=== PATIENT | male | born 1990 | race Caucasian/White ===

== ENCOUNTER 2017-03-08 20:12 | Emergency (ER) | payer OTHER ==
[2017-03-08 20:22] VITALS: BP 134/77; PULSE 133; RESP 18; TEMP 99.9; O2SAT 95
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
[2017-03-08] MEDS ORDERED: Fluorescein 1 mg Ophthalmic Strip OU ONE (23:20)
== END 2017-03-08 23:41 | disposition home or self-care (01) ==
LOC: ED 20:12
DX: S09.90XA Unspecified injury of head, initial encounter (principal); Y04.0XXA Assault by unarmed brawl or fight, initial encounter; Y92.89 Other specified places as the place of occurrence of the external cause

== ENCOUNTER 2018-07-22 19:10 | Emergency (ER) | payer OTHER ==
[2018-07-22 19:47] VITALS: BMI 36.0
[2018-07-22] MEDS ORDERED: Sodium Chloride 0.9% 1,000 ML IV STA ×2 (20:43→23:12)
[2018-07-22] MEDS ORDERED: Albuterol 0.083% Inhal Sol (2.5 mg/3 mL) UD IH STA ×2 (20:43→22:48)
[2018-07-22 21:24] LABS: BASO # 0.02 K/mm3 (0.0-2.0); BASO % 0.2 % (0.0-3.0); EOS # 0.1 (0.0-0.7); EOS % 1.1 % (1.5-5.0); HEMOGLOBIN 15.8 g/dL (14.0-18.0); LYMPH # 1.2 (1.2-3.4); LYMPH % 11.3 % (22.0-35.0); MEAN CELL VOLUME 86.1 fl (80.0-105.0); MEAN CORPUSCULAR HEMOGLOBIN 30.6 pg (25.0-35.0); MEAN CORPUSCULAR HGB CONC 35.5 g/dl (31.0-37.0); MEAN PLATELET VOLUME 10.2 fl (7.0-11.0); MONO # 1.8 (0.1-0.6); MONO % 16.9 % (1.0-6.0); RBC 5.17 10^6/uL (3.5-6.1); RED CELL DISTRIBUTION WIDTH 13.1 % (11.5-14.5); WHITE BLOOD COUNT 10.5 10^3/uL (4.5-11.0)
--- NOTE | 2018-07-22 21:27 | ED PDOC ---
Arrival/HPI - General Chief Complaint: Shortness Of Breath Time Seen by Provider: 07/22/18 19:30 Historian: Patient - History of Present Illness Narrative History of Present Illness (Text): Jean Ortiz Jr is a 28 year old male, whose past medical history includes asthma, who presents to the Emergency department complaining of cough, nasal congestion, body aches, and nausea, with chest tightness which started yesterday. Patient states he has been having some fever at home. Patient states he did not have a flu vaccine this year and reports positive sick contacts at home. Patient denies any shortness of breath currently. Patient did not take any medications for symptoms at home. Symptom Onset: Gradual Symptom Course: Unchanged Activities at Onset: Light Context: Home Past Medical History - Provider Review Nursing Documentation Reviewed: Yes - Travel History Have you recently traveled outside [place] w/in the past 3 mons?: No - Infectious Disease Hx of Infectious Diseases: None - Cardiac Hx Cardiac Disorders: No - Pulmonary Hx Respiratory Disorders: Yes Hx Asthma: Yes - Neurological Hx Neurological Disorder: No - HEENT Hx HEENT Disorder: No - Renal Hx Renal Disorder: No - Endocrine/Metabolic Hx Endocrine Disorders: No - Hematological/Oncological Hx Blood Disorders: No - Integumentary Hx Dermatological Disorder: No - Musculoskeletal/Rheumatological Hx Musculoskeletal Disorders: No - Gastrointestinal Hx Gastrointestinal Disorders: No - Genitourinary/Gynecological Hx Genitourinary Disorders: No - Psychiatric Hx Psychophysiologic Disorder: No Hx Substance Use: No - Anesthesia Hx Anesthesia: No Hx Anesthesia Reactions: No Hx Malignant Hyperthermia: No Family/Social History - Physician Review Nursing Documentation Reviewed: Yes Family/Social History: Unknown Family HX Smoking Status: Heavy Smoker > 10 Cigarettes Daily Hx Alcohol Use: Yes Hx Substance Use: No Allergies/Home Meds Allergies/Adverse Reactions: Allergies kiwi Adverse Reaction (Verified 03/08/17 20:23) SHORTNESS OF BREATH pollen extracts Adverse Reaction (Verified 03/08/17 20:23) SHORTNESS OF BREATH Review of Systems - Physician Review All systems were reviewed & negative as marked: Yes - Review of Systems Constitutional: Normal. absent: Fevers ENT: Sore Throat, Sinus Congestion, Other Respiratory: Cough. absent: SOB Cardiovascular: Chest Pain (+chest tightness). absent: Palpitations Gastrointestinal: Nausea. absent: Abdominal Pain, Diarrhea, Vomiting Genitourinary Male: Normal. absent: Dysuria, Frequency, Hematuria, Urinary Output Changes Musculoskeletal: Other (+body aches). absent: Back Pain, Neck Pain Skin: Normal. absent: Rash, Pruritis Neurological: Normal. absent: Headache, Dizziness Physical Exam Vital Signs Reviewed: Yes Vital Signs Temp Pulse Resp BP Pulse Ox 07/22/18 19:47 100.3 F H 118 H 18 114/68 95 Temperature: Febrile Blood Pressure: Normal Pulse: Tachycardic Respiratory Rate: Normal Appearance: Positive for: Well-Appearing, Non-Toxic, Comfortable Pain Distress: None Mental Status: Positive for: Alert and Oriented X 3 - Systems Exam Head: Present: Atraumatic, Normocephalic Conjunctiva: Present: Normal Ears: Present: Normal, NORMAL TM, Normal Canal. No: Erythema, TM Bulging, Fluid, TM Perf Mouth: Present: Moist Mucous Membranes Pharnyx: Present: Normal. No: ERYTHEMA, EXUDATE, TONSILS ENLARGED, Peritonsilar Swelling, Uvular Deviation, Muffled/Hoarse Voice, Strider, Soft Palate/Uvular Edema Nose (External): Present: Atraumatic Nose (Internal): Present: Normal Inspection, Clear Mucous Neck: Present: Normal Range of Motion. No: Meningeal Signs, MIDLINE TENDERNESS, Paraspinal Tenderness Respiratory/Chest: Present: Good Air Exchange, Wheezes (Slight wheeze bilaterally). No: Clear to Auscultation, Respiratory Distress, Accessory Muscle Use, Decreased Breath Sounds, Retracting, Rhonchi, Tachypneic Cardiovascular: Present: Regular Rate and Rhythm, Normal S1, S2. No: Murmurs Abdomen: Present: Normal Bowel Sounds. No: Tenderness, Distention, Peritoneal Signs, Rebound, Guarding Back: Present: Normal Inspection Upper Extremity: Present: Normal Inspection. No: Cyanosis, Edema Lower Extremity: Present: Normal Inspection. No: Edema Neurological: Present: GCS=15, Speech Normal Skin: Present: Warm, Dry, Normal Color. No: Rashes Psychiatric: Present: Alert, Oriented x 3 Medical Decision Making ED Course and Treatment: Impression: 28 year old male complaining of cough, nasal congestion, body aches, nausea, and chest tightness since yesterday. Plan: -- CBC, CMP, lipase -- Rapid influenza -- CXR -- Urinalysis -- IV fluids -- Albuterol -- Tylenol -- Toradol -- Reassess and disposition Progress Notes: Patient is nontoxic well-appearing in no distress. fever in er. c/o flu like symptoms. rapid flu; negative cxr; no infiltrate. pt given albuterol, toradol and tylenol and NS iv bolus cbc; wnl cmp; wnl lipase; wnl ekg; sinus tachycardia at 108 bpm normal axis no ST elevations pt reassessment; pt feeling better after medications. vitals stable. tamiflu given Po I advised follow up with primary care physician within the next 2 days. Advised taking Tamiflu as prescribed and taking Motrin every 6 hours as needed for pain/fever reduction. I advised increase fluids and return if symptoms worsen persist or if new symptoms develop. pt requesting referral to housekeeping aid. patient verbalizes understanding of discharge instructions and need for immediate followup. All aspects of this case were discussed the attending of record. IMPRESSION; influenza Motrin every 6 hours as needed for pain/fever reduction Tamiflu twice daily x 5 days Increase fluids Follow-up with primary care physician within the next 2 days Return immediately if symptoms worsen persist or if new concerning symptoms develop - RAD Interpretation Radiology Orders: 07/22/18 20:43 CHEST TWO VIEWS (PA/LAT) [RAD] Stat - Medication Orders Current Medication Orders: Sodium Chloride (Sodium Chloride 0.9%) 1,000 mls @ 999 mls/hr IV .Q1H1M STA Stop: 07/22/18 21:43 Discontinued Medications Acetaminophen (Tylenol 325mg Tab) 975 mg PO STAT STA Stop: 07/22/18 20:44 Albuterol Sulfate (Albuterol 0.083% Inhal Erica (2.5 Mg/3 Ml) Ud) 2.5 mg IH STAT STA Stop: 07/22/18 20:44 Ketorolac Tromethamine (Toradol) 30 mg IVP STAT STA Stop: 07/22/18 20:44 - Scribe Statement The provider has reviewed the documentation as recorded by the Apoorva Marion Provider Scribe Attestation: All medical record entries made by the Scribe were at my direction and personally dictated by me. I have reviewed the chart and agree that the record accurately reflects my personal performance of the history, physical exam, medical decision making, and the department course for this patient. I have also personally directed, reviewed, and agree with the discharge instructions and disposition. Disposition/Present on Arrival - Present on Arrival Any Indicators Present on Arrival: No History of DVT/PE: No History of Uncontrolled Diabetes: No Urinary Catheter: No History of Decub. Ulcer: No History Surgical Site Infection Following: None - Disposition Have Diagnosis and Disposition been Completed?: Yes Diagnosis: Flu-like symptoms Disposition Time: 22:30 Patient Plan: Discharge Patient Problems: Current Active Problems Problem Status Onset Flu-like symptoms Acute Condition: GOOD Discharge Instructions (ExitCare): Flu, Adult (DC) Additional Instructions: Motrin every 6 hours as needed for pain/fever reduction Tamiflu twice daily x 5 days Increase fluids Follow-up with primary care physician within the next 2 days Return immediately if symptoms worsen persist or if new concerning symptoms develop Prescriptions: Albuterol HFA [Ventolin HFA 90 mcg/actuation (8 g)] 2 puff IH [id number] PRN #1 inhaler PRN Reason: Cough Ibuprofen [Motrin] 600 mg PO Q6H PRN #20 tab PRN Reason: pain/fever reduction Oseltamivir Cap [Tamiflu] 75 mg PO BID #10 cap Referrals: [facility] [Outside] - Follow up with primary Marjan Taylor MD [Medical Doctor] - Follow up with primary Jessika Arenas MD [Staff Provider] - Follow up with primary Forms: [employer] ([place]), WORK NOTE
[2018-07-22 21:30] LABS: ALB/GLOB RATIO 1.4 (1.1-1.8); ALBUMIN 4.8 g/dL (3.0-4.8); ALT/SGPT 55 U/L (7-56); AST/SGOT 47 U/L (17-59); BLOOD UREA NITROGEN 16 mg/dL (7-21); CALCIUM 9.9 mg/dL (8.4-10.5); GFR NON-AFRICAN AMERICAN > 60; LIPASE 40 U/L (23-300)
[2018-07-22 23:03] VITALS: BP 109/55
[2018-07-22 23:16] VITALS: PULSE 92; RESP 18; TEMP 98.9; O2SAT 98
[2018-07-22 23:21] LABS: URINE BILIRUBIN NEGATIVE (NEGATIVE); URINE BLOOD NEGATIVE (NEGATIVE); URINE GLUCOSE (UA) NEGATIVE (NEGATIVE); URINE LEUKOCYTE ESTERASE NEGATIVE Leu/uL (NEGATIVE); URINE PROTEIN NEGATIVE mg/dL (<30 mg/dL); URINE UROBILINOGEN 0.2 E.U./dL (<1 E.U./dL)
[2018-07-22 23:30] LABS: URINE APPEARANCE CLEAR (CLEAR); URINE COLOR YELLOW (YELLOW)
--- NOTE | 2018-07-23 08:10 | RAD ---
Date of service: 07/22/2018 HISTORY: cough/fever COMPARISON: No prior. TECHNIQUE: Chest PA and lateral FINDINGS: LUNGS: No active pulmonary disease. PLEURA: No significant pleural effusion identified. No pneumothorax apparent. CARDIOVASCULAR: No aortic atherosclerotic calcification present. Normal cardiac size. No pulmonary vascular congestion. OSSEOUS STRUCTURES: No significant abnormalities. VISUALIZED UPPER ABDOMEN: Normal. OTHER FINDINGS: None. IMPRESSION: No acute cardiopulmonary disease appreciated.
--- NOTE | 2018-07-23 11:20 | CARD ---
APPROVED REPORT Date of service: 07/22/2018 EKG Measurement Heart [id number] <Conclusion> Sinus tachycardia Otherwise normal ECG
== END 2018-07-23 00:16 | disposition home or self-care (01) ==
LOC: ED 19:10
DX: J11.1 Influenza due to unidentified influenza virus with other respiratory manifestations (principal); F17.210 Nicotine dependence, cigarettes, uncomplicated
CPT/HCPCS: 71046; 80053; 81003; 83690; 85025; 87804; 93005; 96361; 96374; 99283; J1885; J7030

== ENCOUNTER 2018-07-23 18:06 | Observation (INO) | payer MEDICAID, OTHER ==
[2018-07-23 18:07] VITALS: BMI 36.0
[2018-07-23] MEDS ORDERED: Albuterol 0.083% Inhal Sol (2.5 mg/3 mL) UD IH STA (18:58)
[2018-07-23] MEDS ORDERED: Sodium Chloride 0.9% 1,000 ML IV STA ×2 (18:58→21:03)
[2018-07-23 19:17] LABS: BASO # 0.01 K/mm3 (0.0-2.0); BASO % 0.1 % (0.0-3.0); EOS # 0.1 (0.0-0.7); EOS % 0.7 % (1.5-5.0); HEMOGLOBIN 15.2 g/dL (14.0-18.0); LYMPH % 9.6 % (22.0-35.0); MEAN CELL VOLUME 86.8 fl (80.0-105.0); MEAN CORPUSCULAR HEMOGLOBIN 30.5 pg (25.0-35.0); MEAN CORPUSCULAR HGB CONC 35.1 g/dl (31.0-37.0); MEAN PLATELET VOLUME 10.1 fl (7.0-11.0); MONO # 1.5 (0.1-0.6); RBC 4.99 10^6/uL (3.5-6.1); RED CELL DISTRIBUTION WIDTH 13.2 % (11.5-14.5); WHITE BLOOD COUNT 10.2 10^3/uL (4.5-11.0)
--- NOTE | 2018-07-23 19:23 | ED PDOC ---
Arrival/HPI <Jonathon Villela - Last Filed: 07/23/18 22:30> - General Historian: Patient - History of Present Illness Narrative History of Present Illness (Text): 07/23/18 19:37 28-year-old male with a history of asthma presents today with cough nasal congestion and body aches. patient states he is feeling chest tightness. Patient states he was seen in the emergency room yesterday and diagnosed with flulike illness. Patient states he did not take his Tamiflu and he has not taken Motrin today for fever. Patient states he went to work and felt worse at work. He denies headache or dizziness. No nausea vomiting diarrhea or constipation. No abdominal pain. Patient states he "feels like he has been hit by a truck". <Vidhya Alba - Last Filed: 07/24/18 00:07> - General Chief Complaint: Chest Pain Time Seen by Provider: 07/23/18 18:09 Past Medical History - Provider Review Nursing Documentation Reviewed: Yes - Travel History Have you recently traveled outside [place] w/in the past 3 mons?: No - Infectious Disease Hx of Infectious Diseases: None - Cardiac Hx Cardiac Disorders: No - Pulmonary Hx Respiratory Disorders: Yes Hx Asthma: Yes - Neurological Hx Neurological Disorder: No - HEENT Hx HEENT Disorder: No - Renal Hx Renal Disorder: No - Endocrine/Metabolic Hx Endocrine Disorders: No - Hematological/Oncological Hx Blood Disorders: No - Integumentary Hx Dermatological Disorder: No - Musculoskeletal/Rheumatological Hx Musculoskeletal Disorders: No - Gastrointestinal Hx Gastrointestinal Disorders: No - Genitourinary/Gynecological Hx Genitourinary Disorders: No - Psychiatric Hx Psychophysiologic Disorder: No Hx Substance Use: No - Anesthesia Hx Anesthesia: No Hx Anesthesia Reactions: No Hx Malignant Hyperthermia: No <Vidhya Alba - Last Filed: 07/24/18 00:07> Family/Social History - Physician Review Nursing Documentation Reviewed: Yes Family/Social History: Unknown Family HX Smoking Status: Heavy Smoker > 10 Cigarettes Daily Hx Alcohol Use: Yes Hx Substance Use: No <Vidhya Alba - Last Filed: 07/24/18 00:07> Allergies/Home Meds <Jonathon Villela - Last Filed: 07/23/18 22:30> <Vidhya Alba - Last Filed: 07/24/18 00:07> Allergies/Adverse Reactions: Allergies kiwi Adverse Reaction (Verified 03/08/17 20:23) SHORTNESS OF BREATH pollen extracts Adverse Reaction (Verified 03/08/17 20:23) SHORTNESS OF BREATH Review of Systems - Review of Systems Constitutional: Fatigue, Fevers, Other (bodyaches) ENT: Sore Throat, Sinus Congestion Respiratory: SOB, Cough Cardiovascular: Chest Pain, Palpitations Gastrointestinal: absent: Abdominal Pain, Nausea, Vomiting Musculoskeletal: absent: Arthralgias Skin: absent: Rash, Pruritis Neurological: absent: Headache, Dizziness Psychiatric: absent: Anxiety <Vidhya Alba - Last Filed: 07/24/18 00:07> Physical Exam Vital Signs Temp Pulse Resp BP Pulse Ox 07/23/18 21:54 98.3 F 98 H 18 124/73 94 L 07/23/18 21:02 98.2 F 95 H 18 116/62 96 07/23/18 18:51 99.3 F 118 H 19 114/65 94 L <Jonathon Villela - Last Filed: 07/23/18 22:30> Vital Signs Reviewed: Yes Vital Signs Temp Pulse Resp BP Pulse Ox 07/23/18 18:51 99.3 F 118 H 19 114/65 94 L Temperature: Afebrile Blood Pressure: Normal Pulse: Tachycardic Respiratory Rate: Normal Appearance: Positive for: Well-Appearing, Non-Toxic, Comfortable Pain Distress: None Mental Status: Positive for: Alert and Oriented X 3 - Systems Exam Head: Present: Atraumatic Mouth: Present: Moist Mucous Membranes Neck: Present: Normal Range of Motion, Trachea Midline Respiratory/Chest: Present: Good Air Exchange, Wheezes. No: Clear to Auscultation, Respiratory Distress, Accessory Muscle Use, Retracting, Rhonchi, Tachypneic Cardiovascular: Present: Regular Rate and Rhythm Abdomen: No: Tenderness, Distention, Rebound, Guarding Back: Present: Normal Inspection Upper Extremity: Present: Normal ROM Lower Extremity: Present: Normal ROM Neurological: Present: GCS=15, Speech Normal Skin: Present: Warm, Dry, Normal Color. No: Rashes Psychiatric: Present: Alert, Oriented x 3 <Vidhya Alba - Last Filed: 07/24/18 00:07> Medical Decision Making - Lab Interpretations Lab Results: D-Dimer, Quantitative < 200 ng/mlDDU (0-243) 07/23/18 19:00 Troponin I < 0.01 ng/mL 07/23/18 19:00 Total Bilirubin 0.4 mg/dL (0.2-1.3) 07/23/18 19:00 AST 40 U/L (17-59) 07/23/18 19:00 ALT 56 U/L (7-56) 07/23/18 19:00 Alkaline Phosphatase 64 U/L (38-126) 07/23/18 19:00 Total Protein 8.2 g/dL (5.8-8.3) 07/23/18 19:00 Albumin 4.8 g/dL (3.0-4.8) 07/23/18 19:00 Globulin 3.4 gm/dL 07/23/18 19:00 Albumin/Globulin Ratio 1.4 (1.1-1.8) 07/23/18 19:00 - Medication Orders Current Medication Orders: Albuterol/Ipratropium (Duoneb 3 Mg/0.5 Mg (3 Ml) Ud) 3 ml IH STAT STA Stop: 07/23/18 22:00 Discontinued Medications Acetaminophen (Tylenol 325mg Tab) 975 mg PO STAT STA Stop: 07/23/18 19:03 Last Admin: 07/23/18 19:37 Dose: 975 mg Albuterol Sulfate (Albuterol 0.083% Inhal Erica (2.5 Mg/3 Ml) Ud) 2.5 mg IH STAT STA Stop: 07/23/18 18:59 Last Admin: 07/23/18 19:37 Dose: 2.5 mg Sodium Chloride (Sodium Chloride 0.9%) 1,000 mls @ 999 mls/hr IV .Q1H1M STA Stop: 07/23/18 19:58 Last Admin: 07/23/18 19:37 Dose: 999 mls/hr eMAR Start Stop Document 07/23/18 19:37 IT (Rec: 07/23/18 19:37 IT [id number]) Intravenous Solution Start Date 07/23/18 Start Time 19:37 Sodium Chloride (Sodium Chloride 0.9%) 1,000 mls @ 999 mls/hr IV .Q1H1M STA Stop: 07/23/18 22:03 Last Admin: 07/23/18 21:14 Dose: 999 mls/hr eMAR Start Stop Document 07/23/18 21:14 IT (Rec: 07/23/18 21:14 IT [id number]) Intravenous Solution Start Date 07/23/18 Start Time 21:14 Ketorolac Tromethamine (Toradol) 30 mg IVP STAT STA Stop: 07/23/18 18:59 Last Admin: 07/23/18 19:37 Dose: 30 mg MAR Pain Assessment Document 07/23/18 19:37 IT (Rec: 07/23/18 19:37 IT [id number]) Pain Reassessment Is this a pain reassessment? No Sleep Is patient sleeping during reassessment? No IVP Administration Document 07/23/18 19:37 IT (Rec: 07/23/18 19:37 IT [id number]) Charges for Administration # of IVP Administrations 1 Oseltamivir Phosphate (Tamiflu Cap) 75 mg PO STAT STA; Protocol Stop: 07/23/18 21:01 Last Admin: 07/23/18 21:14 Dose: 75 mg <Jonathon Villela - Last Filed: 07/23/18 22:30> ED Course and Treatment: 07/23/18 19:49 Patient complaining of chest pain cough and shortness of breath with subjective fevers chills and body aches at home. Seen in the ER yesterday did not take medications at home. Found to be tachycardic at 120, low grade fever. tylenol PO Toradol IV Normal saline IV bolus CBCWBC 10.2 CMP within normal limits Trop; within normal limits D-dimer negative ekg; sinus tachycardia at [address] elevations QTC 423 rapid flu; negative Chest x-ray from yesterday reviewed no acute infiltrate Tamiflu po 2nd Liter NS iv bolus given 2nd albuterol added Patient reassessment: pt is still complaining of chest pain and shortness of breath. cxr ordered. cxr shows no infiltrate or effusion. case discussed with Dr. Duncan Will admit the patient observational status to remote telemetry for chest pain and shortness of breath with tachycardia and slight hypoxia. With history of asthma and smoking. this patients 2nd visit to ER in 2 days with worsening symptoms. IMPRESSION; Influenza like illness, chest pain, shortness of breath admit observational status to remote tele for cp and sob. Reassessment Condition: Re-examined, Unchanged - Medication Orders Current Medication Orders: Sodium Chloride (Sodium Chloride 0.9%) 1,000 mls @ 999 mls/hr IV .Q1H1M STA Stop: 07/23/18 19:58 Discontinued Medications Acetaminophen (Tylenol 325mg Tab) 975 mg PO STAT STA Stop: 07/23/18 19:03 Albuterol Sulfate (Albuterol 0.083% Inhal Erica (2.5 Mg/3 Ml) Ud) 2.5 mg IH STAT STA Stop: 07/23/18 18:59 Ketorolac Tromethamine (Toradol) 30 mg IVP STAT STA Stop: 07/23/18 18:59 <Vidhya Alba - Last Filed: 07/24/18 00:07> - PA / ROLL GRINDER OPERATOR / Resident Statement JESSIKA has reviewed & agrees with the documentation as recorded. JESSIKA has examined the patient and agrees with the treatment plan. <Jonathon Villela - Last Filed: 07/23/18 22:30> Disposition/Present on Arrival <Jonathon Villela - Last Filed: 07/23/18 22:30> - Present on Arrival Any Indicators Present on Arrival: No History of DVT/PE: No History of Uncontrolled Diabetes: No Urinary Catheter: No History of Decub. Ulcer: No History Surgical Site Infection Following: None - Disposition Have Diagnosis and Disposition been Completed?: Yes Disposition Time: 21:00 Patient Plan: Observation <Vidhya Alba - Last Filed: 07/24/18 00:07> - Disposition Diagnosis: Flu-like symptoms, Chest pain, Shortness of breath Disposition: HOSPITALIZED Patient Problems: Current Active Problems Problem Status Onset Chest pain Acute Flu-like symptoms Acute Shortness of breath Acute Condition: GOOD
[2018-07-23 19:25] LABS: ALB/GLOB RATIO 1.4 (1.1-1.8); ALBUMIN 4.8 g/dL (3.0-4.8); ALT/SGPT 56 U/L (7-56); AST/SGOT 40 U/L (17-59); BLOOD UREA NITROGEN 14 mg/dL (7-21); CALCIUM 9.4 mg/dL (8.4-10.5); GFR NON-AFRICAN AMERICAN > 60
[2018-07-23 19:36] LABS: TROPONIN I < 0.01 ng/mL
[2018-07-23 19:44] LABS: CK-MB 3.2 ng/mL (0.0-3.6)
[2018-07-23] MEDS ORDERED: Albuterol-Ipratrop 3 mg / 0.5 (3 ml) UD ONE (21:59)
[2018-07-23] MEDS ORDERED: Albuterol-Ipratrop 3 mg / 0.5 (3 ml) UD IH STA (21:59)
--- NOTE | 2018-07-24 00:02 | CP.PCM.HP ---
History of Present Illness - History of Present Illness History of Present Illness: Medicine History and Physical for Hospitalist Service, Dr. Sharon Arreguin DO PGY-1 This is a 28 y o male with PMhx asthma who presents to the ED c/o non-productive dry cough, nasal congestion, and body aches x 3 days in duration. Denies hx of sick contacts or recent travel. Admits to not getting his flu vaccine this year. States that he went to the ED yesterday c/o the same symptoms, was diagnosed with flu-like illness, and discharged home on scripts for Tamiflu, Albuterol inhaler, and Motrin. Pt states never picked up the scripts from his pharmacy and decided to come to the ED again because his symptoms were not improving. He states he went to work this am and stated he felt like he "was hit by a truck". Also admits to associated chest tightness and pain elicited when taking in deep breaths. States he usually has asthma-like symptoms like this in the spring, and thinks it might be 2/2 to the cold outside. Admits to associated nausea, but states he was able to tolerate eating chicken and broccoli this past afternoon without any concerns. States he is hungry currently. Denies headache, fever, ch ills, abd pain, urinary complaints, leg edema, or other symptoms. 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 absent: Chills, Fever - EENT Nose/Mouth/Throat: Nasal Congestion, Nasal Discharge. absent: Sinus Pain, Sore Throat - Cardiovascular Cardiovascular: Chest Pain, Dyspnea - Respiratory Respiratory: Cough, Dyspnea, Chest Congestion. absent: Wheezing - Gastrointestinal Gastrointestinal: Nausea. absent: Abdominal Pain, Constipation, Diarrhea, Vomiting - Integumentary Integumentary: absent: Rash Past Patient History - Infectious Disease Hx of Infectious Diseases: None - Past Social History Smoking Status: Heavy Smoker > 10 Cigarettes Daily - CARDIAC Hx Cardiac Disorders: No - PULMONARY Hx Respiratory Disorders: Yes Hx Asthma: Yes - NEUROLOGICAL Hx Neurological Disorder: No - HEENT Hx HEENT Problems: No - RENAL Hx Chronic Kidney Disease: No - ENDOCRINE/METABOLIC Hx Endocrine Disorders: No - HEMATOLOGICAL/ONCOLOGICAL Hx Blood Disorders: No - INTEGUMENTARY Hx Dermatological Problems: No - MUSCULOSKELETAL/RHEUMATOLOGICAL Hx Musculoskeletal Disorders: No - GASTROINTESTINAL Hx Gastrointestinal Disorders: No - GENITOURINARY/GYNECOLOGICAL Hx Genitourinary Disorders: No - PSYCHIATRIC Hx Psychophysiologic Disorder: No Hx Substance Use: No - SURGICAL HISTORY Hx Surgeries: No - ANESTHESIA Hx Anesthesia: No Hx Anesthesia Reactions: No Hx Malignant Hyperthermia: No Meds Allergies/Adverse Reactions: Allergies Allergy/AdvReac Type Severity Reaction Status Date / Time kiwi AdvReac SHORTNESS Verified 03/08/17 20:23 OF BREATH pollen extracts AdvReac SHORTNESS Verified 03/08/17 20:23 OF BREATH Physical Exam - Constitutional Appears: Non-toxic, No Acute Distress - Head Exam Head Exam: ATRAUMATIC, NORMOCEPHALIC - Eye Exam Eye Exam: EOMI, Normal appearance, PERRL - ENT Exam ENT Exam: Mucous Membranes Moist, Normal Oropharynx, TM's Normal Bilaterally - Neck Exam Neck exam: Positive for: Full Rom, Normal Inspection. Negative for: Lymphadenopathy, Tenderness - Respiratory Exam Respiratory Exam: Clear to Auscultation Bilateral, NORMAL BREATHING PATTERN. absent: Rales, Rhonchi, Wheezes - Cardiovascular Exam Cardiovascular Exam: REGULAR RHYTHM, +S1, +S2. absent: Gallop, Rubs, Systolic Murmur - GI/Abdominal Exam GI & Abdominal Exam: Normal Bowel Sounds, Soft. absent: Distended, Guarding, Organomegaly, Tenderness - Extremities Exam Extremities exam: Positive for: full ROM, normal capillary refill, normal inspection, pedal pulses present. Negative for: calf tenderness, pedal edema - Neurological Exam Neurological exam: Alert, CN II-XII Intact, Normal Gait, Oriented x3, Reflexes Normal - Skin Skin Exam: Dry, Intact, Normal Color, Warm Results - Vital Signs Recent Vital Signs: Last Vital Signs Temp 98.2 F 07/23/18 23:33 Pulse 96 H 07/23/18 23:33 Resp 18 07/23/18 23:33 BP 120/80 07/23/18 23:33 Pulse Ox 96 07/23/18 23:33 - Labs Result Diagrams: 07/23/18 19:00 07/23/18 19:00 Labs: Laboratory Results - last 24 hr 07/23/18 07/23/18 07/23/18 19:00 19:00 19:00 WBC 10.2 RBC 4.99 Hgb 15.2 Hct 43.3 MCV 86.8 MCH 30.5 MCHC 35.1 RDW 13.2 Plt Count 230 MPV 10.1 Neut % (Auto) 74.6 H Lymph % (Auto) 9.6 L [place] % (Auto) 15.0 H Eos % (Auto) 0.7 L Baso % (Auto) 0.1 Lymph # (Auto) 1.0 L [place] # (Auto) 1.5 H Eos # (Auto) 0.1 Baso # (Auto) 0.01 Absolute Neuts (auto) 7.59 H D-Dimer, Quantitative Sodium 140 Potassium 4.2 Chloride 103 Carbon Dioxide 27 Anion Gap 14 BUN 14 Creatinine 0.9 Est GFR ( Amer) > 60 Est GFR (Non-Af Amer) > 60 Random Glucose 114 H Calcium 9.4 Total Bilirubin 0.4 AST 40 ALT 56 Alkaline Phosphatase 64 Lactate Dehydrogenase 571 Total Creatine Kinase 336 H CK-MB (CK-2) 3.2 CK-MB (CK-2) % Cancelled Troponin I < 0.01 Total Protein 8.2 Albumin 4.8 Globulin 3.4 Albumin/Globulin Ratio 1.4 Influenza Typ A,B (EIA) Negative for flu a/b 07/23/18 19:00 WBC RBC Hgb Hct MCV MCH MCHC RDW Plt Count MPV Neut % (Auto) Lymph % (Auto) [place] % (Auto) Eos % (Auto) Baso % (Auto) Lymph # (Auto) [place] # (Auto) Eos # (Auto) Baso # (Auto) Absolute Neuts (auto) D-Dimer, Quantitative < 200 Sodium Potassium Chloride Carbon Dioxide Anion Gap BUN Creatinine Est GFR ( Amer) Est GFR (Non-Af Amer) Random Glucose Calcium Total Bilirubin AST ALT Alkaline Phosphatase Lactate Dehydrogenase Total Creatine Kinase CK-MB (CK-2) CK-MB (CK-2) % Troponin I Total Protein Albumin Globulin Albumin/Globulin Ratio Influenza Typ A,B (EIA) Assessment & Plan - Assessment and Plan (Free Text) Assessment: This is a 28 y o male with PMhx asthma who presents to the ED c/o non-productive dry cough, nasal congestion, and body aches x 3 days in duration. Denies hx of sick contacts or recent travel. Admitted for management of URI. Plan: URI -Admit to obs -Regular diet -Nasal saline spray prn for nasal congestion -Tylenol prn for fevers -CXR negative for active disease -EKG in ED demonstrates sinus tachycardia at 121 bpm, no St-t wave changes appreciated -No leukocytosis on admission -Rapid flu neg -Neg d-dimer -Cont to monitor sxs Hx asthma -Duonebs q6h oscar -Daily Claritin Hx tobacco abuse -Cessation counseling provided -Nicotine patch DVT ppx: SCDs GI ppx: not indicated at this time Pt seen, examined with, and plan discussed with Dr. Sharon Duncan, attending physician. James Arreguin DO PGY-1, Customer Service Leader Pager #[phone]
[2018-07-24 00:08] VITALS: RESP 20
[2018-07-24 00:51] LABS: BARBITURATES, UR NEGATIVE (NEGATIVE); BENZODIAZEPINES, UR NEGATIVE (NEGATIVE); OPIATES, UR NEGATIVE (NEGATIVE); PHENCYCLIDINE, UR NEGATIVE (NEGATIVE)
[2018-07-24] MEDS: Albuterol-Ipratrop 3 mg / 0.5 (3 ml) UD IH SCH ×2 (01:45→08:20)
[2018-07-24] MEDS ORDERED: Albuterol-Ipratrop 3 mg / 0.5 (3 ml) UD IH PRN ×2 (05:53→06:02)
[2018-07-24] MEDS: guaiFENesin 100 mg/5 ml Syrup UD PO PRN ×3 (06:15→21:42)
--- NOTE | 2018-07-24 07:58 | CARD ---
APPROVED REPORT Date of service: 07/23/2018 EKG Measurement Heart [id number] <Conclusion> Sinus tachycardia with fusion complexes Otherwise normal ECG
--- NOTE | 2018-07-24 08:56 | RAD ---
Date of service: 07/23/2018 HISTORY: Chest pain.. SOB COMPARISON: Poor inspiration with comparison made with prior chest radiograph 07/22/2018 FINDINGS: LUNGS: Poor inspiration, low lung volumes, crowded bronchovascular markings and mild bibasilar atelectasis. PLEURA: No significant pleural effusion identified, no pneumothorax apparent. CARDIOVASCULAR: No aortic atherosclerotic calcification present. Normal cardiac size. No pulmonary vascular congestion. OSSEOUS STRUCTURES: no significant abnormalities. VISUALIZED UPPER ABDOMEN: Normal. OTHER FINDINGS: None. IMPRESSION: Poor inspiration with low lung volumes common crowded bronchovascular markings and mild bibasilar atelectasis
[2018-07-24] MEDS ORDERED: Levalbuterol 0.63 MG/3 ML Inhal Soln UD IH PRN (10:25)
[2018-07-24] MEDS: Albuterol-Ipratrop 3 mg / 0.5 (3 ml) UD IH PRN (11:01)
[2018-07-24 17:26] VITALS: TEMP 98.8
[2018-07-25] MEDS: Albuterol-Ipratrop 3 mg / 0.5 (3 ml) UD IH PRN (00:12)
[2018-07-25 08:09] LABS: BASO # 0.03 K/mm3 (0.0-2.0); BASO % 0.4 % (0.0-3.0); EOS # 0.2 (0.0-0.7); EOS % 3.1 % (1.5-5.0); HEMOGLOBIN 15.3 g/dL (14.0-18.0); LYMPH # 1.8 (1.2-3.4); LYMPH % 22.7 % (22.0-35.0); MEAN CELL VOLUME 87.5 fl (80.0-105.0); MEAN CORPUSCULAR HEMOGLOBIN 29.8 pg (25.0-35.0); MEAN PLATELET VOLUME 10.4 fl (7.0-11.0); MONO # 1.4 (0.1-0.6); MONO % 17.7 % (1.0-6.0); RBC 5.14 10^6/uL (3.5-6.1); RED CELL DISTRIBUTION WIDTH 13.5 % (11.5-14.5); WHITE BLOOD COUNT 7.8 10^3/uL (4.5-11.0)
[2018-07-25 08:13] VITALS: BP 120/70; PULSE 90; O2SAT 97
[2018-07-25 08:28] LABS: ALB/GLOB RATIO 1.3 (1.1-1.8); ALBUMIN 4.5 g/dL (3.0-4.8); ALT/SGPT 44 U/L (7-56); AST/SGOT 31 U/L (17-59); BLOOD UREA NITROGEN 7 mg/dL (7-21); CALCIUM 9.8 mg/dL (8.4-10.5); GFR NON-AFRICAN AMERICAN > 60
--- NOTE | 2018-07-25 18:18 | CP.PCM.DIS ---
<Zeke Prabhakar - Last Filed: 07/25/18 18:28> Provider - Provider Date of Admission: 07/23/18 22:40 Attending physician: Galilea Phelps DO Primary care physician: NO PRIMARY CARE PROVIDER Time Spent in preparation of Discharge (in minutes): 40 Diagnosis - Discharge Diagnosis (1) URI (upper respiratory infection) Status: Acute Priority: High (2) Asthma Status: Chronic Priority: High (3) Tobacco abuse Status: Chronic Priority: High Hospital Course - Lab Results Lab Results: Most Recent Lab Values WBC 7.8 10^3/uL (4.5-11.0) D 07/25/18 07:51 RBC 5.14 10^6/uL (3.5-6.1) 07/25/18 07:51 Hgb 15.3 g/dL (14.0-18.0) 07/25/18 07:51 Hct 45.0 % (42.0-52.0) 07/25/18 07:51 MCV 87.5 fl (80.0-105.0) 07/25/18 07:51 MCH 29.8 pg (25.0-35.0) 07/25/18 07:51 MCHC 34.0 g/dl (31.0-37.0) 07/25/18 07:51 RDW 13.5 % (11.5-14.5) 07/25/18 07:51 Plt Count 222 10^3/uL (120.0-450.0) 07/25/18 07:51 MPV 10.4 fl (7.0-11.0) 07/25/18 07:51 Neut % (Auto) 56.1 % (50.0-68.0) 07/25/18 07:51 Lymph % (Auto) 22.7 % (22.0-35.0) 07/25/18 07:51 [place] % (Auto) 17.7 % (1.0-6.0) H 07/25/18 07:51 Eos % (Auto) 3.1 % (1.5-5.0) 07/25/18 07:51 Baso % (Auto) 0.4 % (0.0-3.0) 07/25/18 07:51 Lymph # (Auto) 1.8 (1.2-3.4) 07/25/18 07:51 [place] # (Auto) 1.4 (0.1-0.6) H 07/25/18 07:51 Eos # (Auto) 0.2 (0.0-0.7) 07/25/18 07:51 Baso # (Auto) 0.03 K/mm3 (0.0-2.0) 07/25/18 07:51 Absolute Neuts (auto) 4.36 (1.4-6.5) 07/25/18 07:51 D-Dimer, Quantitative < 200 ng/mlDDU (0-243) 07/23/18 19:00 Sodium 141 mmol/L (132-148) 07/25/18 07:51 Potassium 4.0 mmol/L (3.6-5.0) 07/25/18 07:51 Chloride 105 mmol/L (98-107) 07/25/18 07:51 Carbon Dioxide 27 mmol/L (21-33) 07/25/18 07:51 Anion Gap 13 (10-20) 07/25/18 07:51 BUN 7 mg/dL (7-21) 07/25/18 07:51 Creatinine 0.8 mg/dl (0.8-1.5) 07/25/18 07:51 Est GFR ( Amer) > 60 07/25/18 07:51 Est GFR (Non-Af Amer) > 60 07/25/18 07:51 Random Glucose 120 mg/dL (70-110) H 07/25/18 07:51 Calcium 9.8 mg/dL (8.4-10.5) 07/25/18 07:51 Total Bilirubin 0.4 mg/dL (0.2-1.3) 07/25/18 07:51 AST 31 U/L (17-59) 07/25/18 07:51 ALT 44 U/L (7-56) 07/25/18 07:51 Alkaline Phosphatase 58 U/L (38-126) 07/25/18 07:51 Lactate Dehydrogenase 571 U/L (333-699) 07/23/18 19:00 Total Creatine Kinase 336 U/L (35-230) H 07/23/18 19:00 CK-MB (CK-2) 3.2 ng/mL (0.0-3.6) 07/23/18 19:00 CK-MB (CK-2) % Cancelled 07/23/18 19:00 Troponin I < 0.01 ng/mL 07/23/18 19:00 Total Protein 7.9 g/dL (5.8-8.3) 07/25/18 07:51 Albumin 4.5 g/dL (3.0-4.8) 07/25/18 07:51 Globulin 3.4 gm/dL 07/25/18 07:51 Albumin/Globulin Ratio 1.3 (1.1-1.8) 07/25/18 07:51 Urine Opiates Screen Negative (NEGATIVE) 07/23/18 23:13 Urine Methadone Screen Negative (NEGATIVE) 07/23/18 23:13 Ur Barbiturates Screen Negative (NEGATIVE) 07/23/18 23:13 Ur Phencyclidine Scrn Negative (NEGATIVE) 07/23/18 23:13 Ur Amphetamines Screen Negative (NEGATIVE) 07/23/18 23:13 U Benzodiazepines Scrn Negative (NEGATIVE) 07/23/18 23:13 U Oth Cocaine Metabols Negative (NEGATIVE) 07/23/18 23:13 U Cannabinoids Screen Negative (NEGATIVE) 07/23/18 23:13 Influenza Typ A,B (EIA) Negative for flu a/b (NEGATIVE) 07/23/18 19:00 - Hospital Course Hospital Course: Hospitalization Pt is a 28 yo male with PMH of asthma who presents to the ED complaining of non- productive dry cough, nasal congestion, and body aches x 3 days in duration. Denies hx of sick contacts or recent travel. Admits to not getting his flu vaccine this year. Pt states never picked up the scripts from his pharmacy and decided to come to the ED again because his symptoms were not improving. He states he went to work this am and stated he felt like he "was hit by a truck". Also admits to associated chest tightness and pain elicited when taking in deep breaths. States that he went to the ED yesterday c/o the same symptoms, was diagnosed with flu-like illness, and discharged home on scripts for Tamiflu, Albuterol inhaler, and Motrin. Discharge Please follow up with your primary care physician, Dr Taylor and establish care at the [facility], you have an appointment made for: Friday, August 03, 2018. The clinic is located on the first floor of [facility], right across from the inpatient pharmacy. Please continue to use your Ventolin inhaler as directed. Please continue to take Tamiflu, you are being sent with a prescription for 3 more days. Take one tablet, twice a day. Please stop smoking cigarettes, this will make your breathing worse, and will cause your symptoms to last longer. Given a prescription for Lotrimin (Clotrimazole). Please apply this to your groin rash area two times a day for 5 days. - Date & Time of H&P Date of H&P: 07/25/18 Time of H&P: 06:00 Discharge Exam - Head Exam Head Exam: ATRAUMATIC, NORMOCEPHALIC - Eye Exam Eye Exam: EOMI - ENT Exam ENT Exam: Mucous Membranes Moist - Neck Exam Neck exam: Full Rom - Respiratory Exam Respiratory Exam: NORMAL BREATHING PATTERN. absent: Accessory Muscle Use, Respiratory Distress - Cardiovascular Exam Cardiovascular Exam: RRR, +S1, +S2. absent: Diastolic murmur, Systolic Murmur - GI/Abdominal Exam GI & Abdominal Exam: Normal Bowel Sounds, Soft, Unremarkable. absent: Tenderness - Extremities Exam Extremities exam: pedal pulses present - Neurological Exam Neurological exam: Alert, Oriented x3 - Psychiatric Exam Psychiatric exam: Normal Affect, Normal Mood - Skin Skin Exam: Dry, Intact, Warm Discharge Plan - Discharge Medications Prescriptions: RX: Clotrimazole 1% Cream [Lotrimin 1%] 1 % TP BID #1 tube RX: Oseltamivir Cap [Tamiflu Cap] 75 mg PO BID #6 capsule - Follow Up Plan Condition: GOOD Disposition: HOME/ ROUTINE Instructions: Flu, Adult (DC), Shortness of Breath (Dyspnea) Additional Instructions: 1. Please follow up with your primary care physician, Dr Taylor and establish care at the [facility], you have an appointment made for: Friday, August 03, 2018 at 1:00PM. The clinic is located on the first floor of [facility], right across from the inpatient pharmacy. The safety and security officer at the front entrance can direct you in the right way. 2. Please continue to use your Ventolin inhaler as directed 3. Please continue to take Tamiflu, you are being sent with a prescription for 3 more days. Take one tablet, twice a day. 4. Please stop smoking cigarettes, this will make your breathing worse, and will cause your symptoms to last longer. 5. You are being given a prescription for Lotrimin (Clotrimazole). Please apply this to your groin rash area two times a day for 5 days. 6. If your symptoms return or worsen, please go to the nearest emergency room Referrals: PCP,NO [Primary Care Provider] - <Galilea Phelps - Last Filed: 07/29/18 20:20> Provider - Provider Date of Admission: 07/23/18 22:40 Attending physician: Galilea Phelps DO Primary care physician: NO PRIMARY CARE PROVIDER Hospital Course - Lab Results Lab Results: Most Recent Lab Values WBC 7.8 10^3/uL (4.5-11.0) D 07/25/18 07:51 RBC 5.14 10^6/uL (3.5-6.1) 07/25/18 07:51 Hgb 15.3 g/dL (14.0-18.0) 07/25/18 07:51 Hct 45.0 % (42.0-52.0) 07/25/18 07:51 MCV 87.5 fl (80.0-105.0) 07/25/18 07:51 MCH 29.8 pg (25.0-35.0) 07/25/18 07:51 MCHC 34.0 g/dl (31.0-37.0) 07/25/18 07:51 RDW 13.5 % (11.5-14.5) 07/25/18 07:51 Plt Count 222 10^3/uL (120.0-450.0) 07/25/18 07:51 MPV 10.4 fl (7.0-11.0) 07/25/18 07:51 Neut % (Auto) 56.1 % (50.0-68.0) 07/25/18 07:51 Lymph % (Auto) 22.7 % (22.0-35.0) 07/25/18 07:51 [place] % (Auto) 17.7 % (1.0-6.0) H 07/25/18 07:51 Eos % (Auto) 3.1 % (1.5-5.0) 07/25/18 07:51 Baso % (Auto) 0.4 % (0.0-3.0) 07/25/18 07:51 Lymph # (Auto) 1.8 (1.2-3.4) 07/25/18 07:51 [place] # (Auto) 1.4 (0.1-0.6) H 07/25/18 07:51 Eos # (Auto) 0.2 (0.0-0.7) 07/25/18 07:51 Baso # (Auto) 0.03 K/mm3 (0.0-2.0) 07/25/18 07:51 Absolute Neuts (auto) 4.36 (1.4-6.5) 07/25/18 07:51 D-Dimer, Quantitative < 200 ng/mlDDU (0-243) 07/23/18 19:00 Sodium 141 mmol/L (132-148) 07/25/18 07:51 Potassium 4.0 mmol/L (3.6-5.0) 07/25/18 07:51 Chloride 105 mmol/L (98-107) 07/25/18 07:51 Carbon Dioxide 27 mmol/L (21-33) 07/25/18 07:51 Anion Gap 13 (10-20) 07/25/18 07:51 BUN 7 mg/dL (7-21) 07/25/18 07:51 Creatinine 0.8 mg/dl (0.8-1.5) 07/25/18 07:51 Est GFR ( Amer) > 60 07/25/18 07:51 Est GFR (Non-Af Amer) > 60 07/25/18 07:51 Random Glucose 120 mg/dL (70-110) H 07/25/18 07:51 Calcium 9.8 mg/dL (8.4-10.5) 07/25/18 07:51 Total Bilirubin 0.4 mg/dL (0.2-1.3) 07/25/18 07:51 AST 31 U/L (17-59) 07/25/18 07:51 ALT 44 U/L (7-56) 07/25/18 07:51 Alkaline Phosphatase 58 U/L (38-126) 07/25/18 07:51 Lactate Dehydrogenase 571 U/L (333-699) 07/23/18 19:00 Total Creatine Kinase 336 U/L (35-230) H 07/23/18 19:00 CK-MB (CK-2) 3.2 ng/mL (0.0-3.6) 07/23/18 19:00 CK-MB (CK-2) % Cancelled 07/23/18 19:00 Troponin I < 0.01 ng/mL 07/23/18 19:00 Total Protein 7.9 g/dL (5.8-8.3) 07/25/18 07:51 Albumin 4.5 g/dL (3.0-4.8) 07/25/18 07:51 Globulin 3.4 gm/dL 07/25/18 07:51 Albumin/Globulin Ratio 1.3 (1.1-1.8) 07/25/18 07:51 Urine Opiates Screen Negative (NEGATIVE) 07/23/18 23:13 Urine Methadone Screen Negative (NEGATIVE) 07/23/18 23:13 Ur Barbiturates Screen Negative (NEGATIVE) 07/23/18 23:13 Ur Phencyclidine Scrn Negative (NEGATIVE) 07/23/18 23:13 Ur Amphetamines Screen Negative (NEGATIVE) 07/23/18 23:13 U Benzodiazepines Scrn Negative (NEGATIVE) 07/23/18 23:13 U Oth Cocaine Metabols Negative (NEGATIVE) 07/23/18 23:13 U Cannabinoids Screen Negative (NEGATIVE) 07/23/18 23:13 HIV 1&2 Ag/Ab, 4th Gen Nonreactive (Nonreactive) 07/25/18 07:51 Influenza Typ A,B (EIA) Negative for flu a/b (NEGATIVE) 07/23/18 19:00 Attending/Attestation - Attestation I have personally seen and examined this patient.: Yes I have fully participated in the care of the patient.: Yes I have reviewed all pertinent clinical information, including history, physical exam and plan: Yes Notes (Text): Please note this DC summary is for 07/25/18 Patient seen and examined by me with resident 9:55AM and prior to discharge on . Case including discharge plan discussed with resident. Agree with above with following additions/corrections. Patient is a 28-year-old male with past medical history significant for asthma that presented to the emergency room with non-productive cough, nasal congestion, and body aches. Please see H&P for full details. Patient was admitted with URI, mild intermittent asthma, and tobacco abuse. Infl uenza was negative. UDS was negative. Patient had no leukocytosis. Patient was initially requiring O2 via nasal cannula. Patient was also febrile. Patient was treated with Tamiflu. Patient was also treated with nebulizer treatments. Patient was feeling much better. Shortness of breath resolved. Fevers and body aches resolved. Patient was ambulating well and tolerating diet. Patient was counseled at length on smoking cessation. Patient was discharged home. On the day of discharge, patient stated he was feeling much better. Fevers and body aches resolved. Patient was able to ambulate without shortness of breath. Patient denied any nausea or vomiting. No abdominal pain. Patient denied chest pain or palpitations. No dysuria or burning with urination. No headaches or lightheadedness. No dizziness. No fevers or chills. Physical exam: General: Awake and alert sitting up in bed in no acute distress HEENT: Normocephalic, atraumatic. Extraocular muscles intact, pupils equal and reactive, no scleral icterus. Oropharynx is pink and moist. No pharyngeal erythema or exudate appreciated. Neck is supple. Cardiovascular: Regular rhythm. Normal S1 and S2. No murmurs, rubs, or gallops appreciated Pulmonary: Normal respiratory effort. No rhonchi, rales, or wheezing appreciated. Gastrointestinal: Soft, nondistended. Nontender. Positive bowel sounds all 4 quadrants. No guarding. Musculoskeletal: Moves all extremities. No calf tenderness. No edema appreciated Central nervous system: AAOx3, CN 2-12 grossly intact. Dermatologic: Skin warm and dry. Please see chart for full details. Follow up instructions: Patient to follow up primary care physician, Dr Taylor and establish care at the [facility] on Friday, August 03, 2018 at 1:00PM. Patient to stop smoking and use home inhaler as needed. Patient to finish Tamiflu. All instructions explained to the patient in detail. Patient both understands and agrees to all instructions. Written instructions also given. Time spent in discharging the patient including chart review, medication reconciliation, discussion with the patient, medical certification specialist, consultants, and nursing staff was approximately 35 minutes.
== END 2018-07-25 16:35 | disposition home or self-care (01) ==
LOC: ED 18:06 → ERH 22:40 → 3RNO 23:38
PROVIDERS: ADMIT Hospitalist; ATTEND Hospitalist
DX: J06.9 Acute upper respiratory infection, unspecified (principal); J45.909 Unspecified asthma, uncomplicated; F17.210 Nicotine dependence, cigarettes, uncomplicated
CPT/HCPCS: 36415; 71045; 80053; 82550; 82553; 83615; 84484; 85025; 85378; 87389; 87804; 93005; 94640; 96374; 99285; G0378; G0480; J1885; J7030